=== PATIENT | female | born 1995 | race Caucasian/White ===

== ENCOUNTER 2017-10-12 09:40 | Outpatient (CLI) | payer MEDICAID | END 2017-10-12 09:41 | disposition home or self-care (01) | LOC: BICULT 09:40 | PROVIDERS: ATTEND Nurse Practitioner Women's Health | DX: R10.2 Pelvic and perineal pain (principal) | CPT/HCPCS: 76856 ==

== ENCOUNTER 2018-10-01 22:39 | Day surgery (SDC) | payer OTHER ==
[2018-10-01 23:30] VITALS: BMI 33.0
--- NOTE | 2018-10-02 01:32 | PRG ---
DATE OF SERVICE: 10/02/2018 PRIMARY OB: Dr. Toribio Reynolds. CHIEF COMPLAINT: Abdominal pain. HISTORY OF PRESENT ILLNESS: The patient is a 23-year-old, G2, P1 female with an intrauterine at 31 weeks and 0 days, who is presenting to Labor and Delivery with onset of abdominal tightness and pain. The patient reports that she feels contractions periodically, but during the movie she had felt what she believe were 9 contractions and afterwards came to the emergency room for better evaluation. The patient denies pain with these contractions. She says it lasted about 10 to 15 seconds and since coming to the hospital they have diminished in intensity and frequency. The patient had a little concern, but came because her was worried. The patient denies any recent illness, fever, fall, headache, chest pain, shortness of breath, nausea, vomiting, or diarrhea. She does report constipation. Has a bowel movement about every other day. Denies any new rashes, hip problems, knee problems, muscle weakness. Denies vaginal bleeding, change in discharge, leakage of fluid, urinary urgency or frequency. PAST MEDICAL HISTORY: Negative. PAST SURGICAL HISTORY: Negative. ALLERGIES: NO KNOWN DRUG ALLERGIES. MEDICATIONS: vitamins. SOCIAL HISTORY: Denies drug alcohol tobacco use. REVIEW OF SYSTEMS: Per HPI. OB LABS: Unavailable at time of dictation. PHYSICAL EXAMINATION: VITAL SIGNS: Blood pressure 133/85, heart rate of 89, respiratory rate 18, saturating 99% on room air, temperature 98.4. GENERAL: She appears to be in no acute distress. She is alert, oriented, cooperative, and pleasant to interact with. HEAD: Normocephalic atraumatic. LUNGS: Clear to auscultation bilaterally. HEART: Regular rate and rhythm. ABDOMEN: Gravid, soft, nontender to palpation. EXTREMITIES: Nontender, nonedematous. GENITOURINARY: Has been deferred. heart tracing with NST shows a baseline in the 130s with moderate long-term variability, positive 15/15 accelerations, no decelerations. There are no contractions visible on the monitor. ASSESSMENT AND PLAN: The patient is a 23-year-old female, here with false labor with an intrauterine at 31 weeks. She has been given labor precautions and reassurance. The fetus has a category 1 tracing and reactive NST. The patient was last seen in the beginning of this week by her primary OB and is scheduled to be seen again on the October 09. She will be discharged home with labor precautions. Job ID: [id number]
== END 2018-10-02 00:20 | disposition home or self-care (01) ==
LOC: L&D/OP 22:39
PROVIDERS: ATTEND Family Medicine
DX: O47.03 False labor before 37 completed weeks of gestation, third trimester (principal); Z79.899 Other long term (current) drug therapy; Z3A.31 31 weeks gestation of pregnancy
CPT/HCPCS: 99282

== ENCOUNTER 2018-11-05 21:02 | Emergency (ER) | payer OTHER | END 2018-11-05 22:44 | disposition left against medical advice (07) | LOC: ERS 21:02 | DX: Z53.21 Procedure and treatment not carried out due to patient leaving prior to being seen by health care provider (principal) ==

== ENCOUNTER 2018-11-29 23:24 | Inpatient (IN) | payer OTHER ==
[~2018-11-29 23:24] MED LIST: Bupivacaine 0.25% HCL 30 ML VIAL ONE
[2018-11-30 00:01] VITALS: BMI 32.5
[2018-11-30] MEDS ORDERED: Ibuprofen 800 MG TAB PO PRN (00:20)
[2018-11-30] MEDS ORDERED: Lidocaine 1% (PF) 30 ML VIAL SC PRN (00:20)
[2018-11-30] MEDS ORDERED: Ondansetron PF 4 MG/2 ML Vial IVP PRN ×3 (00:20→14:26)
[2018-11-30] MEDS ORDERED: Promethazine HCl 25 MG/ML VIAL IM PRN ×3 (00:20→14:26)
[2018-11-30] MEDS ORDERED: Butorphanol Tartrate 1 MG/ML VIAL SLOW IVP PRN (00:20)
[2018-11-30] MEDS ORDERED: Penicillin G Potassium 5 MILL.UNITS in Sodium Chloride 0.9% 100 ML IVPB SCH (00:30)
[2018-11-30] MEDS ORDERED: Lactated Ringer's 1,000 ML IV SCH ×2 (00:30)
[2018-11-30] MEDS ORDERED: NS w/ Oxytocin 10 units 500 ML IV SCH (00:30)
[2018-11-30 01:01] LABS: Hemoglobin 11.5 g/dL (12.0-16.0); Mean Corpuscular HGB CONC 34.1 g/dL (32.0-36.0); Mean Corpuscular Hemoglobin 30.2 pg (27.0-31.0); Mean Corpuscular Volume 88.7 fL (78.0-98.0); Mean Platelet Volume 8.5 fL (7.4-10.4); Platelet Count 276 thou/uL (130-400); RBC Distribution Width 12.3 % (11.5-14.5); Red Blood Cell (RBC) Count 3.79 mill/uL (4.20-5.40); White Blood Cell (WBC) Count 10.2 thou/uL (4.8-10.8)
[2018-11-30 01:44] LABS: HBSAg Index 0.28 S/CO (0-0.99); Hep B Surf Ag Non-Reactive S/CO (NonReactive)
[2018-11-30] MEDS: Penicillin G 2.5 MILL.units 2.5 MILL.UNITS in Premix Bag 1 BAG IVPB SCH ×3 (05:00→14:57)
[2018-11-30 05:03] LABS: Syphilis Antibody Nonreactive (Nonreactive); Syphilis Antibody Index 0.05 S/CO (<1.00 Non-Reactive)
[2018-11-30] MEDS ORDERED: Fentanyl 4 mcg/Bup 0.1% Cadd 100 ML ONE (06:08)
[2018-11-30] MEDS ORDERED: diphenhydrAMINE 50 MG/ML VIAL IVP PRN (06:57)
[2018-11-30] MEDS ORDERED: Acetaminophen 325 MG TAB PO PRN (06:57)
[2018-11-30] MEDS ORDERED: Naloxone HCl 0.4 mg/ml Vial IVP PRN ×2 (06:57)
[2018-11-30] MEDS ORDERED: ePHEDrine/0.9% NaCl/PF SYRINGE 50 mg/10 ml SLOW IVP PRN (06:57)
[2018-11-30] MEDS ORDERED: Lactated Ringer's 500 ML IV PRN (06:57)
[2018-11-30] MEDS ORDERED: Communication Order-Pharmacy FS SCH (07:00)
[2018-11-30] MEDS ORDERED: Fentanyl 4 mcg/Bupivacaine 0.1% Cassette 100 ML EPIDURAL SCH (07:00)
[2018-11-30] MEDS ORDERED: HYDROcodone/Acetaminophen 5/325 mg Tablet PO PRN ×2 (14:26)
[2018-11-30] MEDS ORDERED: NS / Oxytocin 40 units/1000ml 1,000 ML IV SCH (14:26)
[2018-11-30] MEDS ORDERED: Bisacodyl 10 MG SUPP PR PRN (14:26)
[2018-11-30] MEDS ORDERED: Lanolin Ointment 7 GM TUBE TOP PRN (14:26)
[2018-11-30] MEDS ORDERED: Benzocaine-Menthol 82.5 ML CAN TOP PRN (14:26)
[2018-11-30] MEDS ORDERED: diphenhydrAMINE 25 MG CAP PO PRN (14:26)
[2018-11-30] MEDS ORDERED: Milk Of Magnesia 30 ML UDCUP PO PRN (14:26)
[2018-11-30] MEDS: Ibuprofen 800 MG TAB PO SCH ×2 (14:59→22:09)
[2018-11-30] MEDS: Ferrous Sulfate 325 MG TAB PO SCH (17:14)
[2018-11-30] MEDS: Docusate Calcium (SURFAK) 240 MG CAP PO SCH (22:10)
[2018-12-01] MEDS: Ibuprofen 800 MG TAB PO SCH ×2 (06:25→14:20)
[2018-12-01 06:33] LABS: Hemoglobin 10.1 g/dL (12.0-16.0); Mean Corpuscular HGB CONC 33.4 g/dL (32.0-36.0); Mean Corpuscular Hemoglobin 30.3 pg (27.0-31.0); Mean Corpuscular Volume 90.5 fL (78.0-98.0); Mean Platelet Volume 8.4 fL (7.4-10.4); Platelet Count 220 thou/uL (130-400); RBC Distribution Width 12.3 % (11.5-14.5); Red Blood Cell (RBC) Count 3.34 mill/uL (4.20-5.40); White Blood Cell (WBC) Count 10.4 thou/uL (4.8-10.8)
[2018-12-01 07:57] VITALS: BP 113/66; TEMP 97.8
[2018-12-01] MEDS ORDERED: Prenatal Vitamin 1 TAB PO SCH (09:00)
[2018-12-01] MEDS: Ferrous Sulfate 325 MG TAB PO SCH (09:28)
[2018-12-01] MEDS: Docusate Calcium (SURFAK) 240 MG CAP PO SCH (09:28)
== END 2018-12-01 17:10 | disposition home or self-care (01) | DRG 806 ==
LOC: L&D/OP 23:24 → L&D 11-30 00:20 → 3SW 11-30 14:38
PROVIDERS: ADMIT Family Medicine; ATTEND Family Medicine
PROC: 10E0XZZ Delivery of Products of Conception, External Approach (ICD-10-PCS; principal; 2018-11-30)
DX: O99.824 Streptococcus B carrier state complicating childbirth (principal); O98.52 Other viral diseases complicating childbirth; Z37.0 Single live birth; B00.9 Herpesviral infection, unspecified; Z3A.39 39 weeks gestation of pregnancy
CPT/HCPCS: 36415; 51702; 85027; 86780; 86850; 86900; 86901; 87340; 99285; J2405; J2540; J2590; J3490; J7050; S0020